=== PATIENT | female | born 1975 | race Caucasian/White ===

== ENCOUNTER 2016-03-09 18:26 | Emergency (ER) | payer BC ==
[~2016-03-09 18:26] MED LIST: CIPR500T2 PO; DARV PO
[2016-03-09 19:19] LABS: BACTERIA, URINE OCC /hpf; BLOOD, URINE NEG (NEG); COMMENT (UR) CULT NOT INDICATED; CULTURE IF INDICATED CULT NOT INDICATED; GLUCOSE,URINE NEG (NEG); KETONE, URINE TRACE mg/dL (NEG); MUCUS URINE FEW /lpf (OCC); NITRITE,URINE NEG (NEG); PH, URINE 6.5 (5.0-8.5); SQUAMOUS EPITHELIAL CELL URINE 1 /hpf (0-5); URINE COLOR YELLOW (YELLW/STRAW)
--- NOTE | 2016-03-09 19:28 | PD ---
HPI Travel History International Travel<30 Days: No Contact w/Intl Traveler<30Days: No Known Affected Area: No History of Present Illness HPI This patient is a 40-year-old 2 para 1 EDC is March 27, 2016 presently at 37 weeks and 3 days she presents with chief complaint of lower abdominal cramping starting earlier today no ruptured membranes or vaginal bleeding the baby is active care with Dr. galindo courses been unremarkable group B strep is negative She has been followed for advanced maternal age History Past Medical History Narrative Medical Allergy to Keflex no major medical problems Obstetric History Obstetric History First baby born 2006 female infant weight 7 lbs. 1 oz. vaginal delivery uncomplicated Past Surgical History Narrative Surgical Breast augmentation 2 Laparoscopy for endometriosis Tonsils and adenoids Family History Narrative Family History Diabetes Social History Alcohol Use: No Tobacco Use: No Substance Abuse: No Allergies-Medications (Allergen,Severity, Reaction): Coded Allergies: Keflex (Verified Allergy, Mild, VOMITING, 12/01/08) Home Meds Active Scripts Darvocet-N [id number] Mg 1 Tab PO Q6HPRN PAIN #20 NEEDED FOR PAIN Prov:Kelvin Baez MD 12/01/08 Ciprofloxacin Hcl 500 Mg Tab1 Tab PO BID #10 Prov:Kelvin Baez MD 12/01/08 Review of Systems Gastrointestinal: Abdominal Pain (crampy lower abdominal pain) Physical Exam Narrative GENERAL: Well-nourished, well-developed patient. Alert oriented 3 and cooperative no acute distress CARDIOVASCULAR: Regular rate and rhythm without murmurs, gallops, or rubs. RESPIRATORY: Breath sounds equal bilaterally. No accessory muscle use. ABDOMEN/GI gravid consistent with 37 weeks soft nontender no palpable contractions Gravid to [-] weeks size Fundal Height: [-] GENITOURINARY: External Genitalia: intact and normal in appearance BUS glands: [-] Cervix: [-] Posterior soft Dilatation: [-] 1-2 Effacement: [-] 80% effaced Station: [-] -2 station Presentation: [-] Vertex Membranes: [intact Uterine Contractions: [-]0 FHT's: Category: [-] 1 Baseline: [-] 130 Reactive: [-] + Variability: [-] Moderate wmrr-py-tygq variability Decels: [-] 0 EXTREMITIES: No cyanosis or edema. 2+ reflexes NEUROLOGICAL: Awake and alert. Motor and sensory grossly within normal limits. Five out of 5 muscle strength in all muscle groups. Normal speech. Data Data Vital Signs Reviewed: Yes Orders Urinalysis - C+S If Indicated (03/09/16 19:02) Labs Laboratory Tests Test 03/09/16 18:45 Urine Color YELLOW Urine Turbidity HAZY Urine pH 6.5 Urine Specific [place] 1.007 Urine Protein NEG Urine Glucose (UA) NEG Urine Ketones TRACE Urine Occult Blood NEG Urine Nitrite NEG Urine Bilirubin NEG Urine Urobilinogen LESS THAN 2.0 Urine Leukocyte Esterase TRACE Urine RBC LESS THAN 1 Urine WBC 3 Urine Squamous Epithelial 1 Cells Urine Amorphous Sediment RARE Urine Bacteria OCC Urine Mucus FEW Microscopic Urinalysis Comment CULT NOT INDICATED MDM Medical Record Reviewed: No Interpretation(s) 40-year-old at 37 weeks and 3 days Not in labor No clinical evidence of ruptured membranes as the amnisure is negative Advanced maternal age Breast augmentation Group B strep is negative No UTI culture indicated Plan Accelerations has been adequately monitored has a category 1 tracing 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 galindo on Wednesday Kick count Diagnosis Diagnosis: Primary Impression: False labor after 37 weeks of gestation without delivery Additional Impression: Advanced maternal age in multigravida Qualified Code: O09.523 - Advanced maternal age in multigravida, third trimester Disposition: 01 DISCHARGE HOME Condition: Stable Patient Instructions: General Instructions Departure Forms: Tests/Procedures Janet Martino MD Mar 09, 2016 19:28
== END 2016-03-09 20:06 | disposition home or self-care (01) ==
LOC: HOBED 18:26
DX: O47.1 False labor at or after 37 completed weeks of gestation (principal); O09.523 Supervision of elderly multigravida, third trimester; Z3A.37 37 weeks gestation of pregnancy
CPT/HCPCS: 81001; 84112; 99284

== ENCOUNTER 2016-03-19 14:14 | Inpatient (IN) | payer BC ==
[2016-03-19] VITALS (45 sets, daily range): BP systolic 80–126; BP diastolic 48–111; PULSE 73–108; RESP 18; TEMP 98.3
[~2016-03-19] VITALS: Ht 167.6 cm; Wt 74.4 kg
[2016-03-19] MEDS ORDERED: MINERAL OIL 10 ML VIAL TOP PRN (18:15)
[2016-03-19] MEDS ORDERED: LACTATED RINGER'S 1000 ML BOLUS IV PRN (18:15)
[2016-03-19] MEDS ORDERED: LIDOCAINE HCL 1% 50 ML VIAL INFIL PRN (18:15)
[2016-03-19] MEDS ORDERED: LIDOCAINE HCL 1% 50 ML VIAL I-DERMAL PRN (18:15)
[2016-03-19] MEDS ORDERED: NS 500 ML BOLUS IV PRN (18:15)
[2016-03-19] MEDS ORDERED: OXYTOCIN 30 UNITS 500ML PREMIX IV ONE (18:15)
[2016-03-19] MEDS ORDERED: NS 1000 ML IV PRN (18:15)
[2016-03-19] MEDS ORDERED: CITRIC ACID-SODIUM CITRATE LIQ 30 ML UDC PO SCH (18:15)
[2016-03-19 18:16] LABS: BASOPHIL % 0.3 % (0.0-2.0); EOSINOPHIL # 0.1 TH/MM3 (0-0.4); EOSINOPHIL % 0.6 % (0.0-4.0); HEMO FLAGS DIFF FINAL; LYMPH % 18.9 % (9.0-44.0); LYMPHOCYTE # 2.3 TH/MM3 (1.0-4.8); MEAN CORPUSCULAR HEMOGLOBIN 29.1 PG (27.0-34.0); MEAN CORPUSCULAR HGB CONC 34.7 % (32.0-36.0); MONO % 5.9 % (0.0-8.0); NEUT % 74.3 % (16.0-70.0); PLATELET COUNT 237 TH/MM3 (150-450); RED BLOOD COUNT 3.81 MIL/MM3 (4.00-5.30); RED CELL DISTRIBUTION WIDTH 14.6 % (11.6-17.2); WHITE BLOOD COUNT 12.1 TH/MM3 (4.0-11.0)
--- NOTE | 2016-03-19 18:54 | MH ---
cc: HI NUNEZ. DATE OF ADMISSION 03/19/2016 ADMISSION DIAGNOSIS 1. Term 2. Advanced maternal age 3. Early labor. HISTORY OF PRESENT ILLNESS The patient is a 40-year-old white female para 1-0-0-1, LMP of 06/21/2015, EDC of 03/2016. Her course is benign. She had normal panorama testing. HOSPITAL COURSE She is admitted in early labor. PAST MEDICAL HISTORY/PAST SURGICAL HISTORY 1. Laparoscopy 2002 2. Endometriosis 3. T&A in 1997. MEDICATIONS Vitamins. ALLERGIES None TRANSFUSIONS None. SOCIAL HISTORY She is , employed. Alcohol, tobacco and drugs are none. PHYSICAL EXAMINATION GENERAL: A gravid white female in no distress. HEENT: Exam normal. CHEST: Clear HEART: Regular rate. BREASTS: Symmetrical ABDOMEN: Gravid. EFW of 3100 mg. Cervix is 2-3, 70, vertex AROMclear. GBS negative. ASSESSMENT As above PLAN she is now admitted for delivery. Since the contractions have slowed down with sharp Pitocin augmentation, epidural p.r.n. MD RENAN Woods/ /6:41 PM /6:47 PM JER
[2016-03-19] MEDS ORDERED: OXYTOCIN 30 UNITS/NS 500ML PREMIX IV SCH (19:30)
[2016-03-19] MEDS ORDERED: fentaNYL 2MCG-BUPIV 0.125% INJ 100 ML ONE (19:44)
[2016-03-19] MEDS: LACTATED RINGER'S 1000 ML IV SCH (20:31)
[2016-03-19] MEDS ORDERED: PREN29TA PO (20:50)
[2016-03-19] MEDS ORDERED: FE T325T (20:51)
[2016-03-19] MEDS ORDERED: ePHEDrine/NS 50 MG/5 ML SYR ONE (20:55)
[2016-03-19] MEDS ORDERED: CALCIUM CARBONATE 500 MG CHEWABLE TAB PO PRN (22:15)
[2016-03-20] VITALS (38 sets, daily range): BP systolic 83–118; BP diastolic 41–79; PULSE 68–182; RESP 14–18; TEMP 98.2–98.9
[2016-03-20] MEDS: LACTATED RINGER'S 1000 ML IV SCH ×2 (00:15→04:30)
[2016-03-20] MEDS ORDERED: fentaNYL 2MCG-BUPIV 0.125% INJ 100 ML ONE (01:35)
[2016-03-20] MEDS ORDERED: ZOLPIDEM TARTRATE 5 MG TAB PO PRN (05:15)
[2016-03-20] MEDS ORDERED: WITCH HAZEL 50%/GLYCERIN 12.5% 40 PAD JAR TOPICAL PRN (05:15)
[2016-03-20] MEDS ORDERED: DOCUSATE SODIUM 50 MG/SENNA 8.6 MG TAB PO PRN (05:15)
[2016-03-20] MEDS ORDERED: ONDANSETRON ODT 4 MG TAB PO PRN (05:15)
[2016-03-20] MEDS ORDERED: BENZOCAINE 20% TOPICAL SPRAY 60 ML CAN TOPICAL PRN (05:15)
[2016-03-20] MEDS ORDERED: SODIUM CHLORIDE 0.9% FLUSH 5 ML FLUSH IV PRN (05:15)
[2016-03-20] MEDS ORDERED: ALUMINUM/MAGNESIUM/SIMETH 30 ML CUP PO PRN (05:15)
[2016-03-20] MEDS ORDERED: ACETAMINOPHEN 325 MG TAB PO PRN (05:15)
[2016-03-20] MEDS ORDERED: DO NOT ADMINISTER ANTICOAGULANTS XX PRN (06:00)
[2016-03-20] MEDS ORDERED: fentaNYL 2MCG-BUPIV 0.125% INJ 100 ML EPIDURAL SCH (06:00)
[2016-03-20] MEDS ORDERED: ePHEDrine/NS 50 MG/5 ML SYR IV PRN (06:00)
[2016-03-20] MEDS ORDERED: NO SYSTEM NARCOTICS XX PRN (06:00)
[2016-03-20] MEDS: ACETAMINOPHEN/HYDROcodone 325 MG/5 MG TAB PO PRN ×4 (07:45→21:54)
[2016-03-20] MEDS: IBUPROFEN 600 MG TAB PO PRN ×2 (07:45→16:12)
[2016-03-20] MEDS ORDERED: SODIUM CHLORIDE 0.9% FLUSH 5 ML FLUSH IV SCH (09:00)
[2016-03-20] MEDS ORDERED: DIPHTH/TETANUS/ACEL PERTUSSIS (BOOSTER) 0.5 ML VIAL/PFS IM ONE (16:00)
[2016-03-20] MEDS ORDERED: MEASLES, MUMPS, RUBELLA VACCINE 0.5 ML VIAL SQ ONE (16:00)
[2016-03-21] MEDS: IBUPROFEN 600 MG TAB PO PRN (05:03)
[2016-03-21 08:00] VITALS: BP 111/61; PULSE 68; RESP 16; TEMP 98.3
[2016-03-21] MEDS: ACETAMINOPHEN/HYDROcodone 325 MG/5 MG TAB PO PRN (08:05)
[2016-03-21 09:59] LABS: AUTOMATED NEUTROPHIL # 7.8 TH/MM3 (1.8-7.7); BASOPHIL # 0.1 TH/MM3 (0-0.2); BASOPHIL % 0.5 % (0.0-2.0); EOSINOPHIL # 0.2 TH/MM3 (0-0.4); EOSINOPHIL % 1.4 % (0.0-4.0); HEMATOCRIT 28.6 % (35.0-46.0); HEMO FLAGS DIFF FINAL; LYMPH % 22.1 % (9.0-44.0); LYMPHOCYTE # 2.5 TH/MM3 (1.0-4.8); MEAN CELL VOLUME 84.7 FL (80.0-100.0); MEAN CORPUSCULAR HEMOGLOBIN 28.7 PG (27.0-34.0); MEAN CORPUSCULAR HGB CONC 33.9 % (32.0-36.0); MONO % 7.2 % (0.0-8.0); NEUT % 68.8 % (16.0-70.0); PLATELET COUNT 230 TH/MM3 (150-450); RED BLOOD COUNT 3.37 MIL/MM3 (4.00-5.30); RED CELL DISTRIBUTION WIDTH 14.6 % (11.6-17.2); WHITE BLOOD COUNT 11.3 TH/MM3 (4.0-11.0)
[2016-03-21] MEDS ORDERED: HYDR-3516 PO (10:31)
--- NOTE | 2016-03-21 10:31 | HHI.DCPOC ---
Discharge Care Plan Report Symptoms to Your Doctor -Temperate above 100.5 degrees -Redness, of incision or excessive or foul smelling drainage -Unusual pain or calf pain -Increased vaginal bleeding -Painful or difficulty urinating -Feelings of extreme sadness or anxiety after 2 weeks Goals to Promote Your Health * To prevent worsening of your condition and complications * To maintain your health at the optimal level Directions to Meet Your Goals Take your medications as prescribed Follow your dietary instruction Follow activity as directed Ensure plenty of rest for recovery Drink fluids for hydration Keep your appointments as scheduled Take your immunizations and boosters as scheduled If your symptoms worsen call your PCP, if no PCP go to Urgent Care Center or Emergency Room Smoking is Dangerous to Your Health. Avoid second hand smoke Call the 24-hour crisis hotline for domestic abuse at Michael Payne MD Mar 21, 2016 10:31
--- NOTE | 2016-03-25 08:15 | MD ---
cc: IH NUNEZ M.D. ADMISSION DATE: 03/19/2016 DISCHARGE DATE: 03/21/2016 ADMITTING DIAGNOSIS 1. Term , early labor. 2. Advanced maternal age. DISCHARGE DIAGNOSIS 1. Term , early labor. 2. Advanced maternal age. 3. Delivered HISTORY OF PRESENT ILLNESS The patient is a 40-year-old white female, para 1-0-0-1 with an LMP of 06/21/2015, EDC of 03/27/2016. Her course was benign. She had normal testing. Her labs include Rh positive, VDRL nonreactive, rubella immune, rubeola immune, GONZALEZ negative, Pap negative. Glucose screen was normal. Strep culture was negative. HOSPITAL COURSE She has admitted in early labor on the evening of 03/19/2016. She had epidural anesthesia and Pitocin augmentation, progressed to a spontaneous vaginal delivery on the morning of 03/20/2016, a viable vigorous male, Apgars 9 and 9. The baby was named Aracelis and she was bottle feeding. she did well and was discharged home in excellent condition on 03/21/2016. She was carefully instructed in , perineal and circumcision care. She was given a prescription for Lortab 5, 1-2 p.o. q.4h., p.r.n. pain,#40. She is to return to see me in six weeks and call if any abnormal symptoms. MD RENAN Woods/SOLA /10:45 AM /7:55 AM MTDMauricio
== END 2016-03-21 13:17 | disposition home or self-care (01) | DRG 775 ==
LOC: HOBED 14:14 → H2EB 16:27 → H1EA 03-20 06:49
PROVIDERS: ADMIT Obstetrics & Gynecology; ATTEND Obstetrics & Gynecology
PROC: 10E0XZZ Delivery of Products of Conception, External Approach (ICD-10-PCS; principal; 2016-03-19)
PROC: 3E0R3CZ (ICD-10-PCS; 2016-03-19)
PROC: 00HU33Z Insertion of Infusion Device into Spinal Canal, Percutaneous Approach (ICD-10-PCS; 2016-03-19)
DX: O09.529 Supervision of elderly multigravida, unspecified trimester (principal); Z37.0 Single live birth; Z3A.40 40 weeks gestation of pregnancy
CPT/HCPCS: 84112; 85025; 86900; 86901; 99285; J2590; J7120